=== PATIENT | female | born 1960 | race Caucasian/White ===

== ENCOUNTER 2019-10-05 12:02 | Emergency (ER) | payer OTHER ==
[~2019-10-05] VITALS: Ht 147.3 cm; Wt 71.7 kg
[2019-10-05] MEDS ORDERED: LEVOXYL25 MCG (13:33)
== END 2019-10-05 18:02 | disposition home or self-care (01) ==
LOC: ER 12:02
DX: N39.0 Urinary tract infection, site not specified (principal)

== ENCOUNTER 2024-02-14 08:45 | Outpatient (CLI) | payer OTHER ==
[~2024-02-14 08:45] MED LIST: LEVOXYL25 MCG
== END 2024-02-14 08:52 | disposition home or self-care (01) ==
LOC: SONOGRAMA 08:45
DX: R10.2 Pelvic and perineal pain (principal); R10.9 Unspecified abdominal pain